=== PATIENT | female | born 1975 | race Caucasian/White ===

== ENCOUNTER 2021-06-15 13:25 | Outpatient (REF) | payer MEDICAID, SELFPAY ==
--- NOTE | ~2021-06-15 | MM_ITS ---
EXAMINATION: MM SCREENING DIGITAL BREAST TOMOSYNTHESIS, BILATERAL CLINICAL INFORMATION: Screening. Asymptomatic. The lifetime risk of breast cancer based on the Tyrer-Cuzick Model is 12%. COMPARISON: Mammography: 01/14/2020, 09/09/2018, 01/06/2018 TECHNIQUE: Digital breast tomosynthesis is performed in both the craniocaudal and mediolateral oblique views along with computer-aided detection (CAD). Synthesized 2D images are generated from the tomosynthesis. FINDINGS: The breasts are heterogeneously dense, which may obscure small masses (ACR BI-RADS breast composition Category c). Left breast shows no significant changes from prior exams. Neither breast shows abnormal calcifications. The axilla are stable. The skin contours are smooth. Right breast tomography demonstrates subtle focal radiating pattern 1.5 cm in diameter at posterior 12:30 o'clock position. Finding is not appreciated on synthesized 2-D images. Patient will be recalled for additional imaging to further characterize. MM/MM tomosynthesis screening BI IMPRESSION: 1. Right: Subtle focal converging lines posterior 12:30 o'clock position on the tomography. 2. Left: No mammographic evidence of malignancy. ASSESSMENT: BI-RADS 0: Incomplete - Need Additional Imaging Evaluation RECOMMENDATION: 1. Additional views of the right breast (spot CC, spot MLO, ML) 2. Targeted ultrasound right breast. 3. Radiology department staff will contact the patient for additional imaging. This patient's information was entered into a reminder system with a target due date for their next mammogram.
== END 2021-06-15 13:26 | disposition home or self-care (01) ==
LOC: HO.MAMMO 13:25
PROVIDERS: Visit Provider Internal Medicine
DX: Z12.31 Encounter for screening mammogram for malignant neoplasm of breast (principal)
CPT/HCPCS: 77063; 77067

== ENCOUNTER 2021-06-30 14:30 | Outpatient (REF) | payer MEDICAID, SELFPAY ==
--- NOTE | ~2021-06-30 | MM_ITS ---
EXAMINATION: MM DIAGNOSTIC DIGITAL BREAST TOMOSYNTHESIS, RIGHT US DIAGNOSTIC ULTRASOUND BREAST, RIGHT CLINICAL INFORMATION: Recall from screening for subtle focal converging lines posterior 12:30 o'clock position noted on tomography. TC score 12%. COMPARISON: Mammography: 06/15/2021, 01/14/2020, 09/09/2018 TECHNIQUE: Digital breast tomosynthesis is performed. 2D images are generated from the tomosynthesis. The following views are obtained: Spot CC, spot MLO, standard ML. Examination is reviewed intra-departmentally. Ultrasound right breast is targeted to the posterior upper breast. Grayscale imaging and color Doppler are performed without and with harmonics. Patient is imaged supine with normal as well as semiupright with arm down. FINDINGS: The breasts are heterogeneously dense, which may obscure small masses (ACR BI-RADS breast composition Category c). The additional views again demonstrate subtle focal radiating pattern of approximately 1.5 cm in diameter at posterior 12:30 o'clock position. In retrospect, finding is likely without significant change in size from prior tomography. Ultrasound shows no cystic or solid mass, focal duct ectasia, or focal architectural abnormality or shadowing. There is no ultrasound correlate. Results are discussed with the patient at time of visit. Although the finding is likely chronic and similar in size, the radiating pattern is of unclear etiology. Differential considerations include radial scar, fat necrosis, PASH, hamartoma, as well as other entities. Management options discussed with patient. Patient is willing to undergo tissue sampling with stereotactic guidance. MM/MM tomosynthesis added views R IMPRESSION: Subtle focal radiating stromal markings at posterior upper breast. No ultrasound correlate. Differential considerations include radial scar, fat necrosis, PASH, hamartoma, as well as other entities. ASSESSMENT: BI-RADS 4: Suspicious (subcategory 4A: Low suspicion for malignancy) RECOMMENDATION: Stereotactic biopsy right breast. This patient's information was entered into a reminder system with a target due date for their next mammogram.
== END 2021-06-30 14:31 | disposition home or self-care (01) ==
LOC: HO.MAMMO 14:30
PROVIDERS: Visit Provider Internal Medicine
DX: N63.12 Unspecified lump in the right breast, upper inner quadrant (principal)
CPT/HCPCS: 76642; 77061; 77065

== ENCOUNTER 2021-07-06 09:05 | Outpatient (REF) | payer MEDICAID, SELFPAY ==
--- NOTE | ~2021-07-06 | MM_ITS ---
EXAMINATION: STEREOTACTIC TOMOSYNTHESIS-GUIDED VACUUM-ASSISTED BREAST BIOPSY, RIGHT SPECIMEN RADIOGRAPH, RIGHT POST PROCEDURE DIGITAL BREAST TOMOSYNTHESIS, RIGHT CLINICAL INFORMATION: Subtle focal radiating pattern posterior 12:30 o'clock position right breast. No ultrasound correlate. Differential considerations include radial scar, fat necrosis, PASH, hamartoma, as well as other entities. COMPARISON: Mammography 06/15/2021, 06/30/2021, ultrasound right breast 06/30/2021. TECHNIQUE/PROCEDURE: Informed consent was obtained from the patient after discussion of the benefits, risks, and alternatives to biopsy today. Patient appeared to understand. Gave opportunity for questions. Patient signed consent form. BIOPSY TABLE: [employer] Affirm Prone Biopsy System. LESION: Subtle radiating pattern posterior 12:30 o'clock position approximately 1.5 cm in diameter. LOCAL ANESTHESIA: 10 mL carbonated 1% lidocaine; 10 mL 1% lidocaine with epinephrine. DERMATOTOMY: Single skin thomas dermatotomy performed. NEEDLE: [employer] Eviva 9-gauge vacuum assisted core biopsy device. APPROACH: medial lateral. TARGETING: Combination of digital breast tomosynthesis and stereotactic digital mammography used for targeting. CORES: 12. CLIP: [employer] Cylinder-shaped marker. SPECIMEN RADIOGRAPH: Specimen radiograph is taken in separate room using digital mammography. There are scattered fibroglandular densities in the cores as expected. POST PROCEDURE DIGITAL BREAST TOMOSYNTHESIS, RIGHT: The post biopsy mammogram is performed in separate room using separate digital breast tomosynthesis equipment from the biopsy procedure. CC and ML views are obtained. Synthesized 2-D images are obtained from the tomography. There are scattered areas of fibroglandular density (breast composition category: b). The clip marker is in expected position. The radiating density is not clearly visualized post sampling. No gross hematoma. The patient tolerated the procedure well. No immediate complications. Home instructions reviewed with the patient. Final pathology results are pending. MM/MM stereotactic biopsy RT IMPRESSION: 1. Digital tomosynthesis-guided core biopsy right breast with clip placement. 2. Specimen radiograph taken and post procedure mammogram. There is satisfactory positioning of the biopsy clip. 3. Final pathology results pending. An addendum report will be issued.
[2021-07-06] MEDS: Lidocaine HCl 1 % 20 ML VIAL 9 ML SUBCUT (11:19)
[2021-07-06] MEDS: Sodium Bicarbonate 8.4% 50 MEQ/50 ML VIAL SUBCUT (11:20)
== END 2021-07-06 09:06 | disposition home or self-care (01) ==
LOC: HO.MAMMO 09:05
PROVIDERS: Visit Provider Surgery
DX: R92.8 Other abnormal and inconclusive findings on diagnostic imaging of breast (principal)
CPT/HCPCS: 19081; 88305; 99202; A4648

== ENCOUNTER → 2021-07-12 13:46 | Outpatient (BNVA) | payer MEDICAID, SELFPAY | PROVIDERS: PCP Internal Medicine; Visit Provider Surgery | DX: R92.8 Other abnormal and inconclusive findings on diagnostic imaging of breast (principal); Z88.6 Allergy status to analgesic agent | CPT/HCPCS: 99212 ==

== ENCOUNTER 2022-06-21 13:13 | Outpatient (REF) | payer MEDICAID, SELFPAY ==
--- NOTE | ~2022-06-21 | MM_ITS ---
EXAMINATION: MM SCREENING DIGITAL BREAST TOMOSYNTHESIS, BILATERAL CLINICAL INFORMATION: Screening. Asymptomatic. Benign right stereotactic biopsy 07/06/2021 (benign breast tissue with stromal fibrosis, pseudoangiomatous stromal hyperplasia, and prominent adipose tissue. No atypia or malignancy identified). The lifetime risk of breast cancer based on the Tyrer-Cuzick Model is 12%. COMPARISON: Mammography: 07/06/2021, 06/30/2021, 06/15/2021, 01/14/2020, 09/09/2018 TECHNIQUE: Digital breast tomosynthesis is performed in both the craniocaudal and mediolateral oblique views along with computer-aided detection (CAD). Synthesized 2D images are generated from the tomosynthesis. FINDINGS: The breasts are heterogeneously dense, which may obscure small masses (ACR BI-RADS breast composition Category c). There is biopsy clip marker posterior 12:00 right breast. No developing density or interval mass or suspicious architectural changes. The remainder of the bilateral breasts show similar parenchymal pattern. No significant mass or abnormal calcifications. The axilla and skin contours are unremarkable. MM/MM tomosynthesis screening BI IMPRESSION: No mammographic evidence of malignancy. ASSESSMENT: BI-RADS 1: Negative RECOMMENDATION: Routine annual mammography screening. This patient's information was entered into a reminder system with a target due date for their next mammogram.
== END 2022-06-21 13:14 | disposition home or self-care (01) ==
LOC: HO.MAMMO 13:13
PROVIDERS: PCP Internal Medicine; Visit Provider Internal Medicine
DX: Z12.31 Encounter for screening mammogram for malignant neoplasm of breast (principal)
CPT/HCPCS: 77063; 77067

== ENCOUNTER 2023-01-21 | Outpatient (REF) | payer MEDICAID, SELFPAY | END 2023-01-21 00:01 | disposition home or self-care (01) | LOC: HO.HHCLNP | PROVIDERS: Visit Provider Family Medicine | DX: R30.0 Dysuria (principal) | CPT/HCPCS: 87086; 87088; 87186 ==

== ENCOUNTER 2023-02-22 16:17 | Outpatient (REF) | payer MEDICAID, SELFPAY ==
[2023-02-22 17:37] LABS: MANUAL DIFF FLAG NO
[2023-02-22 17:39] LABS: Basophils Percent Auto 0.5 % (0-2); Eosinophils Absolute Auto 0.4 X10*3/uL (0.0-0.4); Eosinophils Percent Auto 5.7 % (0-4); Hematocrit 38.6 % (37.0-47.0); Hemoglobin 12.4 g/dl (12.0-16.0); Imm Gran Abs Auto 0.03 X10*3/uL (0.00-0.03); Imm Gran Pct Auto 0.5 % (0.0-0.4); Lymphocytes Percent Auto 32.2 % (20-40); Mean Corpuscular HGB Conc 32.1 g/dl (31.0-35.0); Mean Corpuscular Hemoglobin 27.8 pg (27.0-33.0); Mean Corpuscular Volume 86.5 fL (80.0-98.0); Mean Platelet Volume 10.2 fL (9.4-12.3); Monocytes Absolute Auto 0.5 X10*3/uL (0.1-1.2); Monocytes Percent Auto 7.5 % (2-11); Neutrophils Absolute Auto 3.3 x10*3/uL (2.0-8.3); Neutrophils Percent Auto 53.6 % (45-73); Platelet Count 337 X10*3/uL (160-400); Red Blood Count 4.46 X10*6/uL (4.20-5.50); Red Cell Distribution Width 13.5 % (11.0-16.0); White Blood Count 6.1 X10*3/uL (4.8-10.8)
[2023-02-22 18:38] LABS: TSH reflex Free T4 4.02 uIU/mL (0.32-4.0)
[2023-02-22 19:10] LABS: Free T4 (Free Thyroxine) 0.85 ng/dL (0.71-1.85)
== END 2023-02-22 16:18 | disposition home or self-care (01) ==
LOC: HO.CHCLDS 16:17
PROVIDERS: Visit Provider Internal Medicine
DX: E03.9 Hypothyroidism, unspecified (principal); J01.10 Acute frontal sinusitis, unspecified
CPT/HCPCS: 36415; 84439; 84443; 85025

== ENCOUNTER 2023-03-28 10:39 | Outpatient (REF) | payer MEDICAID, SELFPAY ==
[2023-03-28 15:23] LABS: TSH reflex Free T4 4.51 uIU/mL (0.32-4.0)
== END 2023-03-28 10:40 | disposition home or self-care (01) ==
LOC: HO.CHCLDS 10:39
PROVIDERS: Visit Provider Internal Medicine
DX: E03.9 Hypothyroidism, unspecified (principal)
CPT/HCPCS: 36415; 84439; 84443; 87086

== ENCOUNTER 2023-03-28 16:13 | Outpatient (REF) | payer MEDICAID, SELFPAY | END 2023-03-28 16:14 | disposition home or self-care (01) | LOC: CF 16:13 | PROVIDERS: Visit Provider Internal Medicine | DX: R30.0 Dysuria (principal) | CPT/HCPCS: 87086 ==

== ENCOUNTER 2023-07-12 15:29 | Outpatient (REF) | payer MEDICAID, SELFPAY ==
--- NOTE | ~2023-07-12 | MM_ITS ---
EXAMINATION: MM SCREENING DIGITAL BREAST TOMOSYNTHESIS, BILATERAL CLINICAL INFORMATION: Screening. Asymptomatic. COMPARISON: Mammography: This study is compared with prior exams dating back to 2019. TECHNIQUE: Digital breast tomosynthesis is performed in both the craniocaudal and mediolateral oblique views along with computer-aided detection (CAD). Synthesized 2D images are generated from the tomosynthesis. FINDINGS: The breasts are heterogeneously dense, which may obscure small masses (ACR BI-RADS breast composition Category c). There are no significant masses, abnormal calcifications, or other abnormalities. There is a tissue marker present in the superior aspect of the right breast from prior benign percutaneous biopsy. MM/MM tomosynthesis screening BI IMPRESSION: No mammographic evidence of malignancy. ASSESSMENT: BI-RADS BI-RADS 2 - Benign Findings RECOMMENDATION: Routine annual mammography screening. 1 year F/U This examination should not preclude the clinical evaluation of a suspicious palpable abnormality. This patient's information was entered into a reminder system with a target due date for their next mammogram.
== END 2023-07-12 15:30 | disposition home or self-care (01) ==
LOC: HO.MAMMO 15:29
PROVIDERS: PCP Internal Medicine; Visit Provider Internal Medicine
DX: Z12.31 Encounter for screening mammogram for malignant neoplasm of breast (principal)
CPT/HCPCS: 77063; 77067

== ENCOUNTER → 2023-07-12 15:30 | Outpatient (BNV) | payer MEDICAID, SELFPAY | PROVIDERS: PCP Internal Medicine; Visit Provider Radiology Diagnostic Radiology | DX: Z12.31 Encounter for screening mammogram for malignant neoplasm of breast (principal) | CPT/HCPCS: 77063; 77067 ==

== ENCOUNTER 2024-09-02 11:01 | Outpatient (REF) | payer MEDICAID, SELFPAY ==
[2024-09-02 11:11] LABS: Appearance Urine Cloudy; Color Urine Yellow; Glucose Urine UA Negative (Negative); Leukocyte Esterase Urine Large (3+) (Negative); Nitrite Urine Negative (Negative); PH 6.5 (5.0-9.0); UMIC TRIGGER UACC YES; Urine Blood Trace (Negative); Urine Ketones Negative (Negative); Urine Protein Negative (Neg-Trace)
[2024-09-02 11:14] LABS: Bacteria Urine 4+ (None Seen); Hyaline Casts Urine 0-2 /LPF (0-2); RBC Urine 0-2 /HPF (0-2); Squamous Epithelial Cell Urine 0-2 /HPF (0-2); UACC Culture Trigger YES; WBC Urine >50 /HPF (0-5)
--- OUTSIDE RECORDS SUMMARY | 2024-09-02 12:26 | XMS_ITS | Encounter Summary ---
Author Organization [employer] Address [address] [place] [address] Care Team Providers Care Soil Technologist Name Role Phone Danielle Grant MD Primary Care Provider Encounter Details Date Type Department Care Team (Late st Contact Info) Description 10/25/2023 Orders Only [facility] PEDS [address] [place] [address] Danielle Grant MD [address] [place] [address] Mild intermittent asthma without complication (Primary Dx) Social History Tobacco Use Types Packs/Day Years Used Date Smoking Tobacco: Never Smokeless Tobacco: Never Comments Unknown Sex and Gender Information Value Date Recorded Sex Assigned at Female 02/26/2022 10:24 AM EDT Legal Sex Female 10:24 AM EDT Gender Identity Female 02/26/2022 10:24 AM EDT Sexual Orientation Choose not to disclose 2021 10:24 AM EDT documented as of this encounter Plan of Treatment Not on file documented as of this encounter Visit Diagnoses Diagnosis Mild intermittent asthma without complication- Primary documented in this encounter Care Teams Soil Technologist Relationship Specialty Start Date End Date Danielle Grant MD [address] [place] [address] PCP - General Internal Medicine 12/27/17 documented as of this encounter
--- OUTSIDE RECORDS SUMMARY | 2024-09-02 12:26 | XMS_ITS | Encounter Summary ---
Author Organization [employer] Address [address] [facility] [address] [place] [address] Care Team Providers Care Applications Analyst Name Role Phone Danielle Grant MD Primary Care Provider [phone]- [phone] Encounter Details Date Type Department Care Team (Late st Contact Info) Description 10/05/2022 Abstract [facility] MED [facility] PEDS [address] [place] [address] Danielle Grant MD [address] [place] [address] Social History Tobacco Use Types Packs/Day Years [...] documented as of this encounter Visit Diagnoses Not on filedocumented in this encounter Care Teams Applications Analyst Relationship Specialty Start Date End Date Danielle Grant MD [address] [place] [address] PCP - General Internal Medicine 12/27/17 documented as of this encounter
--- OUTSIDE RECORDS SUMMARY | 2024-09-02 12:26 | XMS_ITS | Encounter Summary ---
Author Organization [employer] Address [address] [facility] [address] [place] [address] Care Team Providers Care Used Car Renovator Name Role Phone Danielle Grant MD Primary Care Provider [phone]- [phone] Encounter Details Date Type Department Care Team (Late st Contact Info) Description 02/26/2023 Orders Only [facility] MED & PEDS [address] [place], [place] [phone] Danielle Grant MD [address] [place], [place] [phone] Acquired hypothyroidism (Primary Dx) Social History Tobacco Use Types [...] on file documented as of this encounter Procedures Procedure Name Priority Date/Time Associated Diagnosis Comments TSH W/REFLEX TO FT4 Routine 03/28/2023 10:41 AM EST Acquired hypothyroidism documented in this encounter Results * (ABNORMAL) TSH W/Reflex to FT4 (03/28/2023 10:41 AM EST) TSH reflex Free T4 4.51(H) 0.32 - 4.0 uIU/mL [facility] Blood 03/28/2023 10:4 1 AM EST 03/28/2023 2:17 PM EST Danielle Grant MD LAB BLOOD ORDERABLES Final Result [facility] [address] [place] [address] [phone] documented in this encounter Visit Diagnoses Diagnosis Acquired hypothyroidism- Primary Unspecified hypothyroidism documented in this encounter Care Teams Used Car Renovator Relationship Specialty Start Date End Date Danielle Grant MD [address] [place] [id number] PCP - General Internal Medicine 12/27/17 documented as of this encounter
--- OUTSIDE RECORDS SUMMARY | 2024-09-02 12:26 | XMS_ITS | Encounter Summary ---
Author Organization [employer] Address [address] [facility] [address] [place] [address] Care Team Providers Care [place] Helper Name Role Phone Danielle Grant MD Primary Care Provider [phone]- [phone] Encounter Details Date Type Department Care Team (Late st Contact Info) Description 10/05/2022 Abstract [facility] MED & PEDS [address] [place] [address] Danielle Grant MD [address] [place] [address] Social History Tobacco Use Types Packs/Day Years [...] on filedocumented in this encounter Care Teams [place] Helper Relationship Specialty Start Date End Date Danielle Grant MD [address] [place] [address] PCP - General Internal Medicine 12/27/17 documented as of this encounter
--- OUTSIDE RECORDS SUMMARY | 2024-09-02 12:26 | XMS_ITS | Clinical Summary ---
Author Organization [employer] Address [address] [facility] 7t [place] [address] Care Team Providers Care Telesales Professional Name Role Phone Danielle Grant MD Primary Care Provider [phone]- [phone] Allergies Active Allergy Reactions Criticality Noted Date Comments Codeine 06/17/2019 Other reaction(s): Abdominal pain, DIZZY Shellfish Allergy Anaphylaxis High 03/28/2018 Medications * This document contains information received from the source organization and may not represent a complete record from that organization. albuterol (2.5 MG/3ML) 0.083% nebulizer solution Inhale 3 mL every 8 (eight) hours. Active Ventolin HFA 108 (90 Base) MCG/ACT inhalerIndication s:Mild intermittent asthma without complication INHALE TWO PUFFS BY MOUTH EVERY 6 HOURS NEEDED FOR WHEEZING 18 g 024 Active naproxen (Naprosyn) 500 MG tabletIndications :Acute non-recurrent frontal sinusitis TAKE ONE TABLET TWICE DAILY 60 tablet Active loratadine (Claritin) 10 MG tabletIndications :Seasonal allergies TAKE ONE TABLET EVERY MORNING 30 tablet Active fluticasone (Flonase) 50 MCG/ACT nasal spray INHALE 1 - 2 SPRAYS IN EACH NOSTRIL ONCE DAILY NEEDED 16 g Active Mometasone Furoate (Asmanex, 120 Metered Doses,) 220 MCG/ACT aerosol powderIndications :Mild intermittent asthma without complication Inhale 220 mcg 2 times daily. 1 each Active levothyroxine (Synthroid, Levoxyl) 100 MCG tabletIndications :Acquired hypothyroidism TAKE ONE TABLET EVERY MORNING BEFORE BREAKFAST 90 tablet 1 024 Active Beclomethasone Diprop HFA (Qvar RediHaler) 80 MCG/ACT inhalerIndication s:Mild intermittent asthma, unspecified whether complicated Inhale 80 mcg in the morning and at bedtime. Rinse mouth with water after use to reduce aftertaste and incidence of candidiasis. Do not swallow. 10.6 g 11 025 Active chlorhexidine (Peridex) 0.12 % solution Swish 15 mL morning and night for 1 minute. Spit, do not swallow. Do not eat or drink for 30 minutes following use. 473 mL 025 Active ibuprofen 600 MG tablet Take 1 tablet (600 mg) by mouth every 6 (six) hours if needed for mild pain for up to 20 doses. 20 tablet 025 Active ciprofloxacin (Cipro) 500 MG tabletIndications :Dysuria,Costover tebral angle tenderness Take 1 tablet (500 mg) by mouth 2 times daily for 7 days. 14 tablet 025 2024 Active levothyroxine (Synthroid, Levoxyl) 112 MCG tabletIndications :Acquired hypothyroidism Take 1 tablet (112 mcg) by mouth Once per day. 90 tablet 3 025 Active ibuprofen 600 MG tabletIndications :Acute sore throat,Pharyngiti s due to other organism Take 1 tablet (600 mg) by mouth every 8 (eight) hours if needed for mild pain. 20 tablet 025 Active levothyroxine (Synthroid, Levoxyl) 112 MCG tabletIndications :Acquired hypothyroidism TAKE ONE TABLET DAILY 90 tablet 1 024 2024 Discontinued(R eorder (will not trigger notification to Pharmacy)) ibuprofen 600 MG tabletIndications :Acute sore throat,Pharyngiti s due to other organism TAKE ONE TABLET TWICE DAILY 20 tablet 024 2024 Discontinued(R eorder (will not trigger notification to Pharmacy)) Active Problems Problem Noted Date Diagnosed Date Costovertebral angle tenderness 09/01/2024 Assessment & Plan (09/01/2024 6:10 PM EDT): On exam had left CVA tenderness. Suspect possible early pyelonephritis given exam, history and urine dip significant for acute UTI. -prescribed ciprofloxacin (Cipro) 500 MG Dysuria 09/01/2024 Assessment & Plan (09/01/2024 6:09 PM EDT): Likely acute UTI based on history, exam and urine dip. Left CVA tenderness, suspicious for stefano pyelonephritis. Denies antibiotic use in the past 90 days. Allergies reviewed. -Urinalysis and urine culture sent to the lab -Started on ciprofloxacin (Cipro) 500 MG for suspected early pyelonephritis. -Potential adverse effects of the medication reviewed -Discussed strategies to prevent future infections: Increase fluids. Urinate after sex. Avoid bladder irritants. -Report fever, chills, worsening symptoms, nausea, vomiting or worsening back pain. Acne 07/15/2024 Migraine 07/15/2024 Cervical intraepithelial neoplasia grade 1 05/11 Chronic neck pain 05/11/2022 Hypothyroidism 05/11/2022 Mild intermittent asthma 05/11/2022 Positional vertigo 05/11/2022 Asthma 02/26/2017 History of cervical dysplasia 02/26/2017 Overview (07/15/2024): 01/2016: LGSIL -> colpo CIN1 02/2017: LEEP BETO 1-2, neg ECC, neg margins 2018: NIL/HPV neg 2019: NIL/HPV pos 05/2020: NIL/HPV neg Plan: repeat pap in 3 year Encounters Date Type Department Care Team Description 09/01/2024 6:00 PM EDT Office Visit [facility] [address] [place] [phone] Angely Reed MD Dysuria (Primary Dx); Costovertebral angle tenderness; Acquired hypothyroidism; Acute sore throat; Pharyngitis due to other organism 09/01/2024 Telephone [facility] [address] [place] [address] [phone] Angely Reed MD insurance 09/01/2024 Travel 09/01/2024 Telephone [facility] [address] [place] [address] [phone] aDnielle Grant MD Nurse Triage 07/15/2024 11:00 AM EDT Office Visit [facility] [address] [place] [address] Radha Reed DMD History of tooth extraction, unspecified edentulism class (Primary Dx) 07/15/2024 9:00 AM EDT Office Visit [facility] [address] [place] [address] Martell, Harmanpreet 07/14/2024 2:30 PM EDT Office Visit [facility] [address] [place] [address] Martell, Harmanpreet 07/14/2024 Telephone [facility] [address] [place] [address] Martell, Harmanpreet 06/30/2024 3:30 PM EST Office Visit [facility] [address] [place] [address] Martell, Harmanpreet from Last 3 Months Immunizations Name Administration Dates Next Due Influenza injectable quadrivalent preservative f ree 03/28/2023 Social History Tobacco Use Types Packs/Day Years Used Date Smoking Tobacco: Never Smokeless Tobacco: Never Tobacco Cessation:Counseling Given: No Comments Unknown Sex and Gender Information Value Date Recorded Sex Assigned at Female 02/26/2022 10:24 AM EDT Legal Sex Female 10:24 AM EDT Gender Identity Female 02/26/2022 10:24 AM EDT Sexual Orientation Choose not to disclose 2021 10:24 AM EDT Last Filed Vital Signs Vital Sign Reading Time Taken Comments Blood Pressure 122/78 09/01/2024 5:45 PM EDT Pulse 76 09/01/2024 5:45 PM EDT Temperature 36.2 ??C (97.1 ??F) 09/01/2024 5:45 PM ED T Respiratory Rate 22 09/01/2024 5:45 PM EDT Oxygen Saturation 97% 09/01/2024 5:45 PM EDT Inhaled Oxygen Concentration - - Weight 78.2 kg (172 lb 8 oz) 09/01/2024 5:45 PM EDT Height 160 cm (5' 3 ) 09/01/2024 5:45 PM EDT Body Mass Index 30.56 09/01/2024 5:45 PM EDT Plan of Treatment Health Maintenance Due Date Last Done Comments CT Colonography 1975 Depression Screening 1975 FIT DNA/Cologuard 1975 FIT 1975 FOBT 1975 HIV Screening 1975 SDOH Screening 1975 Sigmoidoscopy 1975 Alcohol/Substance Use Screening 1987 Family Planning (PISQ) 07/12/1990 Hepatitis C Screening 07/12/1993 Hepatitis B Vaccines (1 of 3 - 19+ 3-dose series) 07/12/1994 Pneumococcal Vaccine: Pediatrics (0 to 5 Years) and At-Risk Patients (6 to 49) Years) (1 of 2 - PCV) 07/12/1994 Dental Oral Exam 12/17/2019 06/17/2019, 06/2018, 07/30/2018 Dental Prophylaxis 12/17/2019 06/17/2019 Dental X-Ray: Full Mouth 03/04/2022 03/03/2019, 04/06/2018 Pap Smear 05/30/2023 05/30/2020 COVID-19 Vaccine ( season) 2023 04/20/2021, 08/21/2020, 07/30/2020 Influenza Vaccine (#1) 2023 , 03/27/2022, 03/07/2021, Additional history exists Mammogram 07/11/2024 07/12/2023, 05/31, 06/21/2022, Additional history exists Cervical Cancer Screening 05/30/2025 HPV/Cotest 05/30/2025 05/30/2020 Dental X-Ray: Bitewings 07/01/2025 06/30/2024, 07/30 Zoster Vaccines (1 of 2) 07/12/2025 Tobacco Screening 07/15/2025 07/15/2024 DTaP/Tdap/Td Vaccines (3 - Td or Tdap) 04/18/2027 04/18/2017, 11/01/2011, 07/01/2006 Colonoscopy 04/02/2032 04/02/2022 Colorectal Cancer Screening 04/02/2032 RSV Patients and Patients Aged 60 years or older (1 - 1-dose 75+ series) 07/12/2050 HIB Vaccines Aged Out No longer eligi ble based on patient's age to complete this topic HPV Vaccines Aged Out No longer eligi ble based on patient's age to complete this topic Hepatitis A Vaccines Aged Out No long er eligible based on patient's age to complete this topic IPV Vaccines Aged Out No longer eligi ble based on patient's age to complete this topic Meningococcal Vaccine Aged Out No jessica ankita eligible based on patient's age to complete this topic RSV under 20 months Aged Out No longe r eligible based on patient's age to complete this topic Rotavirus Vaccines Aged Out No longer eligible based on patient's age to complete this topic Procedures Procedure Name Priority Date/Time Associated Diagnosis Comments URINALYSIS, COMPLETE, WITH REFLEX TO CULTURE Routine 09/01/2024 6:00 PM EDT Dysuria POCT URINALYSIS DIPSTICK Routine 09/01/2024 5:58 PM EDT Dysuria 31 EXTRACTION, ERUPTED TOOTH REQ REMOVAL OF BONE AND/OR SECTIONING OF TOOTH Routine 07/15/2024 11:00 AM EDT History of tooth extraction, unspecified edentulism class CASE PRESENTATION, DETAILED AND EXTENSIVE TREATMENT PLANNING Routine 07/15/2024 11:00 AM EDT History of tooth extraction, unspecified edentulism class NO CHARGE VISIT Routine 07/15/2024 9:00 AM EDT NO CHARGE VISIT Routine 07/14/2024 2:30 PM EDT BITEWING - SINGLE RADIOGRAPHIC IMAGE Routine 06/30/2024 3:30 PM EST INTRAORAL - PERIAPICAL FIRST RADIOGRAPHIC IMAGE Routine 06/30/2024 3:30 PM EST LIMITED ORAL EVALUATION - PROBLEM FOCUSED Routine 06/30/2024 3:30 PM EST BI MAMMOGRAM SCREENING TOMOSYNTHESIS BILATERAL Routine 07/12/2023 3:47 PM EDT HM PAP/HPV Routine 05/30/2020 PROPHYLAXIS - ADULT Routine 06/17/2019 1 2:00 AM EST PERIODIC ORAL EVALUATION - ESTABLISHED PATIENT Routine 06/17/2019 12:00 AM EST PANORAMIC RADIOGRAPHIC IMAGE Routine 03/03/2019 12:00 AM EST from Last 3 Months or Most Recently Relevant to Health Maintenance Results * (ABNORMAL) Urinalysis, Complete, with Reflex to Culture (09/01/2024 6:00 PM EDT) Color Urine Yellow [facility] Appearance Urine Cloudy [facility] PH 6.5 5.0 - 9.0 [facility] Glucose Urine UA Negative Negative mg/dL [facility] Urine Blood Trace(A) Negative [facility] Specific [place] - Urine 1.010 1.005 - 1.025 [facility] Urine Protein Negative Neg-Trace mg/dL [facility] Urine Ketones Negative Negative mg/dL [facility] Nitrite Urine Negative Negative [facility] Leukocyte Esterase Urine Large (3+)(A) Negative [facility] RBC Urine 0-2 0 - 2 /HPF [facility] Urine WBC >50(A) 0 - 5 /HPF [facility] Urine Squamous Epithelial Cell 0-2 0 - 2 /HPF [facility] Urine Bacteria 4+ None Seen [facility] Hyaline Casts, Urine 0-2 0 - 2 /LPF [facility] Urine 09/01/2024 6:00 PM EDT 09/02/2024 11:02 AM EDT Narrative [facility] - 09/02/2024 11:16 AM EDT Urine, Clean Catch us Angely Reed MD LAB URINE ORDERABLES Final Result [facility] [address] [place] [phone] * (ABNORMAL) POCT Urinalysis (09/01/2024 5:58 PM EDT) Color, UA Light Yellow Clarity, UA Clear Glucose, UA Negative Bilirubin, UA Negative Ketones, UA Negative Spec Grav, UA 1.010 Blood, UA Positive(A) Negative, None Detected Comment:Trace-intact pH, UA 6.5 Protein, UA Negative Urobilinogen, UA 1.0 Leukocytes, UA Moderate(A) Negative, Rare, Trace Nitrite, UA Negative Negative, None Detected Appearance, UA [id number] QC Media Lot # [id number] Urine 09/01/2024 5:58 PM EDT us Angely Reed MD POINT OF CARE TEST ENTER/E DIT ORDERABLES Final Result * BI Mammogram Screening Tomosynthesis Bilateral (07/12/2023 3:47 PM EDT) Anatomical Region Laterality Modality Breast Bilateral Mammography 07/12/2023 3:47 PM EDT Narrative 08/03/2023 2:52 PM EDT ? [facility] ? [address] ?[place] [address] ? Mammography Report ? Signed ? Patient: Cheverez,Lumary ?MR#: [id number] ?? [id number] ? : 1975 ?Acct:[id number] ? Age/Sex: 47 / F ?ADM Date: 07/12/23 ? Loc: HO.MAMMO ? Attending Dr: Danielle Grant MD ? Ordering Physician: Danielle Grant MD ?Results: 2 ?? Benign Findings ? Date of Service: 07/12/23 ?Follow Up: 1 Year From Orig ?? inal Mammogram ? Procedure(s): MM tomosynthesis screening BI ?? Accession Number(s): [id number] ? cc: Danielle Grant MD ? EXAMINATION: ?? MM SCREENING DIGITAL BREAST TOMOSYNTHESIS, BILATERAL ? CLINICAL INFORMATION: ? Screening. Asymptomatic. ? COMPARISON: ?? Mammography: This study is compared with prior exams dating back to ?? 2018. ? TECHNIQUE: ?? Digital breast tomosynthesis is performed in both the craniocaudal and ?? mediolateral oblique views along with computer-aided detection (CAD). ?? Synthesized 2D images are generated from the tomosynthesis. ? FINDINGS: ?? The breasts are heterogeneously dense, which may obscure small masses ?? (ACR BI-RADS breast composition Category c). ? There are no significant masses, abnormal calcifications, or other ?? abnormalities. ? There is a tissue marker present in the superior aspect of the right ?? breast from prior benign percutaneous biopsy. ? MM/MM tomosynthesis screening BI ?? IMPRESSION: ?? No mammographic evidence of malignancy. ? ASSESSMENT: ? BI-RADS BI-RADS 2 - Benign Findings ? RECOMMENDATION: ?? Routine annual mammography screening. ? 1 year F/U ? This examination should not preclude the clinical evaluation of a ?? suspicious palpable abnormality. ? This patient's information was entered into a reminder system with a ?? target due date for their next mammogram. ? Dictated By: ?Rebekah Verdugo MD ? Signed By: ?<Electronically signed by Rebekah Verdugo MD in OV> ? 08/03/23 1449 ? DD/ 1547 ? TD/TT: ? Nursing Project Coordinator: ? Procedure Note Ilda, Image - 08/03/2023 [facility] [address] [place] [address] [place]. [place], [place] [address] Mammography Report Signed Patient: Kelley TaborMR#: [id number] : 1975Acct:[id number] Age/Sex: 47 / FADM Date: 07/12/23 Loc: [facility] Attending Dr: Danielle Grant MD Ordering Physician: Danielle Grant MDResults: 2 Benign Findings Date of Service: 07/12/23Follow Up: 1 Year From Orig ina Mammogram Procedure(s): MM tomosynthesis screening BI Accession Number(s): [id number] cc: Danielle Grant MD EXAMINATION: MM SCREENING DIGITAL BREAST TOMOSYNTHESIS, BILATERAL CLINICAL INFORMATION: Screening. Asymptomatic. COMPARISON: Mammography: This study is compared with prior exams dating back to 2019. TECHNIQUE: Digital breast tomosynthesis is performed in both the craniocaudal and mediolateral oblique views along with computer-aided detection (CAD). Synthesized 2D images are generated from the tomosynthesis. FINDINGS: The breasts are heterogeneously dense, which may obscure small masses (ACR BI-RADS breast composition Category c). There are no significant masses, abnormal calcifications, or other abnormalities. There is a tissue marker present in the superior aspect of the right breast from prior benign percutaneous biopsy. MM/MM tomosynthesis screening BI IMPRESSION: No mammographic evidence of malignancy. ASSESSMENT: BI-RADS BI-RADS 2 - Benign Findings RECOMMENDATION: Routine annual mammography screening. 1 year F/U This examination should not preclude the clinical evaluation of a suspicious palpable abnormality. This patient's information was entered into a reminder system with a target due date for their next mammogram. Dictated By: Rebekah Verdugo MD Signed By: <Electronically signed by Rebekah Verdugo MD in OV> 08/03/23 1449 DD/ 1547 TD/TT: Nursing Project Coordinator: Danielle Grant MD IMG BI PROCEDURES Final Res ult * Hm Pap Smear (05/30/2020) Pap Negative for intraephithelial lesion or malignancy Negative for intraephithelial lesion or malignancy, Other HPV Undetected Undetected, Indeterminate, Quantitative, Not Detected Historical Provider HEALTH MAINTENANCE Final Result from Last 3 Months or Most Recently Relevant to Health Maintenance Insurance N PARTIAL [facility] Care Teams Telesales Professional Relationship Specialty Start Date End Date Danielle Grant MD [address] [place] [id number] PCP - General Internal Medicine 12/27/17
--- OUTSIDE RECORDS SUMMARY | 2024-09-02 12:26 | XMS_ITS | Encounter Summary ---
Author Organization [employer] Address [address] [facility] 7 [place] [address] Care Team Providers Care Tire And Tube Repairer Name Role Phone Danielle Grant MD Primary Care Provider [phone]- [phone] Encounter Details Date Type Department Care Team (Late st Contact Info) Description 10/05/2022 Abstract [facility] [address] [place], [place] [phone] Danielle Grant MD [address] [place], [place] [phone] Social History Tobacco Use Types Packs/Day Years [...] Procedure Name Priority Date/Time Associated Diagnosis Comments MAMMOGRAPHY Routine 06/21/2022 documented in this encounter Results * Mammography (06/21/2022) Mammogram performed Comment:PERFORMED Anatomical Region Laterality Modality Other Historical Provider HEALTH MAINTENANCE Final Result documented in this encounter Visit Diagnoses Not on filedocumented in this encounter Care Teams Tire And Tube Repairer Relationship Specialty Start Date End Date Danielle Grant MD [address] [place] [address] PCP - General Internal Medicine 12/27/17 documented as of this encounter
--- OUTSIDE RECORDS SUMMARY | 2024-09-02 12:26 | XMS_ITS | Encounter Summary ---
Author Organization [employer] Address [address] [facility] 7t [place] [address] Care Team Providers Care Sprinkler Truck Driver Name Role Phone Danielle Grant MD Primary Care Provider [phone]- [phone] Encounter Details Date Type Department Care Team ([facility] st Contact Info) Description 05/11/2022 Orders Only [facility] [address] [place] [address] Kristina Browning LPN Social History Tobacco Use Types Packs/Day Years Used Date Smoking Tobacco: Never Assessed Comments Unknown Sex and Gender Information Value [...] on filedocumented in this encounter Care Teams Sprinkler Truck Driver Relationship Specialty Start Date End Date Danielle Grant MD [address] [place] [address] PCP - General Internal Medicine 12/27/17 documented as of this encounter
--- OUTSIDE RECORDS SUMMARY | 2024-09-02 12:26 | XMS_ITS | Encounter Summary ---
Author Organization [employer] Address [address] [facility] [address] [place] [address] Care Team Providers Care Suppository Molding Machine Operator Name Role Phone Danielle Grant MD Primary Care Provider [phone]- [phone] Encounter Details Date Type Department Care Team (Late st Contact Info) Description 10/05/2022 Abstract [facility] [address] [place] [address] Danielle Grant MD [address] [place] [address] Social History Tobacco Use Types Packs/Day Years [...] on filedocumented in this encounter Care Teams Suppository Molding Machine Operator Relationship Specialty Start Date End Date Danielle Grant MD [address] [place] [address] PCP - General Internal Medicine 12/27/17 documented as of this encounter
--- OUTSIDE RECORDS SUMMARY | 2024-09-02 12:26 | XMS_ITS | Encounter Summary ---
Author Organization [employer] Address [address] [facility] [address] [place] [address] Care Team Providers Care Head Of Drama Name Role Phone Danielle Grant MD Primary Care Provider +1- [phone] Reason for Visit * Reason Onset Date Comments insurance 09/01/2024 Encounter Details Date Type Department Care Team ([facility] st Contact Info) Description 09/01/2024 Telephone [facility] [address] [place] [address] [phone] Angely Reed MD [address] [place], [place] [phone] insurance Social History Tobacco Use Types Packs/Day Years Used Date Smoking Tobacco: Never Smokeless Tobacco: Never Comments Unknown Sex and Gender Information Value Date Recorded Sex Assigned at Female 02/26/2022 10:24 AM EDT Legal Sex Female 10:24 AM EDT Gender Identity Female 02/26/2022 10:24 AM EDT Sexual Orientation Choose not to disclose 2021 10:24 AM EDT documented as of this encounter Miscellaneous Notes * Telephone Encounter - Shalini Kearns - 09/01/2024 5:35 PM EDT Pt was advised to update insurance with PCP/LOC info. Pt agreed mentioned she would take care of matter tomorrow 09/02/24 during regular business hours. FD informed pt to also advise insurance that she was seen today on 09/01/24 in our walk in office. documented in this encounter Plan of Treatment Not on file documented as of this encounter Visit Diagnoses Not on filedocumented in this encounter Care Teams Head Of Drama Relationship Specialty Start Date End Date Danielle Grant MD [address] [place] [phone] PCP - General Internal Medicine 12/27/17 documented as of this encounter
--- OUTSIDE RECORDS SUMMARY | 2024-09-02 12:26 | XMS_ITS | Encounter Summary ---
Author Organization [employer] Address [address] [facility] 7t [place] [address] Care Team Providers Care Casino Floor Person Name Role Phone Danielle Grant MD Primary Care Provider +1- [phone] Encounter Details Date Type Department Care Team (Late st Contact Info) Description 10/05/2022 Abstract [facility] [address] [place] [address] Danielle Grant MD [address] [place] [address] Social History Tobacco Use Types Packs/Day Years [...] on filedocumented in this encounter Care Teams Casino Floor Person Relationship Specialty Start Date End Date Danielle Grant MD [address] [place] [address] PCP - General Internal Medicine 12/27/17 documented as of this encounter
--- OUTSIDE RECORDS SUMMARY | 2024-09-02 12:26 | XMS_ITS | Encounter Summary ---
Author Organization [employer] Address [address] [facility] 7t [place] [address] Care Team Providers Care Wireline Operator Name Role Phone Danielle Grant MD Primary Care Provider [phone]- [phone] Encounter Details Date Type Department Care Team (Late st Contact Info) Description 09/01/2024 6:00 PM EDT Office Visit [facility] [address] [place] [address] [phone] Angely Reed MD [address] [place] [phone] Dysuria (Primary Dx); Costovertebral angle tenderness; Acquired hypothyroidism; Acute sore throat; Pharyngitis due to other organism Social History Tobacco Use Types Packs/Day Years Used Date Smoking Tobacco: Never Smokeless Tobacco: Never Comments Unknown Sex and Gender Information Value Date Recorded Sex Assigned at Female 02/26/2022 10:24 AM EDT Legal Sex Female 10:24 AM EDT Gender Identity Female 02/26/2022 10:24 AM EDT Sexual Orientation Choose not to disclose 2021 10:24 AM EDT documented as of this encounter Last Filed Vital Signs Vital Sign Reading [...] Mass Index 30.56 09/01/2024 5:45 PM EDT documented in this encounter Progress Notes * Angely Reed MD - 09/01/2024 6:00 PM EDT Sabra Tabor is a 49 y.o. female here for evaluation of dysuria and specifically at end of urination beginning 5 days ago. Other associated symptoms include: back pain and urinary frequency. Feverhas been absent. Symptoms which are not present include: vaginal discharge and vaginal itching. UTIhistory: UA recent with findings of UTI with unknown organism earlier today showed negative nitrites, moderate leukocytes. Antibiotic use within past three months: SJBABXUSE: none. Review of Systems Constitutional: Negative for fever and unexpected weight change. Respiratory: Negative for shortness of breath. Cardiovascular: Negative for chest pain. Gastrointestinal: Negative for abdominal pain. Genitourinary: Positive for decreased urine volume and dysuria. Negative for difficulty urinating, menstrual problem, pelvic pain, vaginal bleeding, vaginal discharge and vaginal pain. Musculoskeletal: Positive for back pain. Objective Visit Vitals BP 122/78 (BP Location: Right arm, Patient Position: Sitting, BP Cuff Size: Adult) Pulse 76 Temp 97.1 ??F (36.2 ??C) (Temporal) Resp 22 Ht 5' 3 (1.6 m) Wt 172 lb 8 oz (78.2 kg) LMP 07/30/2024 (Within Days) SpO2 97% BMI 30.56 kg/m?? Smoking Status Never BSA 1.86 m?? Physical Exam Constitutional: Appearance: Normal appearance. Cardiovascular: Rate and Rhythm: Normal rate and regular rhythm. Heart sounds: Normal heart sounds. Pulmonary: Effort: Pulmonary effort is normal. Breath sounds: Normal breath sounds. Abdominal: Tenderness: There is no abdominal tenderness. There is right CVA tenderness and left CVA tenderness. Musculoskeletal: Cervical back: Normal range of motion and neck supple. Neurological: General: No focal deficit present. Mental Status: She is alert. Psychiatric: Behavior: Behavior normal. Lab review Office Visit on 09/01/2024 Component Date Value Ref Range Status Color, UA 09/01/2024 Light Yellow Final Clarity, UA 09/01/2024 Clear Final Glucose, UA 09/01/2024 Negative Final Bilirubin, UA 09/01/2024 Negative Final Ketones, UA 09/01/2024 Negative Final Spec Grav, UA 09/01/2024 1.010 Final Blood, UA 09/01/2024 Positive (A) Negative, None Detected Final Trace-intact pH, UA 09/01/2024 6.5 Final Protein, UA 09/01/2024 Negative Final Urobilinogen, UA 09/01/2024 1.0 Final Leukocytes, UA 09/01/2024 Moderate (A) Negative, Rare, Trace Final Nitrite, UA 09/01/2024 Negative Negative, None Detected Final Appearance, UA 09/01/2024 408,020 Final QC Media Lot # 09/01/2024 [id number] Final Problem List Items Addressed This Visit Dysuria - Primary Likely acute UTI based on history, exam [...] symptoms, nausea, vomiting or worsening back pain. Relevant Medications ciprofloxacin (Cipro) 500 MG tablet Other Relevant Orders POCT Urinalysis (Completed) Urinalysis, Complete, with Reflex to Culture Costovertebral angle tenderness On exam had left CVA tenderness. Suspect possible early pyelonephritis given exam, history and urine dip significant for acute UTI. -prescribed ciprofloxacin (Cipro) 500 MG Relevant Medications ciprofloxacin (Cipro) 500 MG tablet Hypothyroidism Relevant Medications levothyroxine (Synthroid, Levoxyl) 112 MCG tablet Other Visit Diagnoses Acute sore throat Relevant Medications ibuprofen 600 MG tablet Pharyngitis due to other organism Relevant Medications ibuprofen 600 MG tablet -No evidence of acute disease process. Suspect acute UTI, possible early pyelonephritis. Symptoms moderate. -Will treat with abx and ordered UA and sent culture. . -ER precautions discussed. -Seek medical attention for worsening symptoms. IAmrit, am serving as a scribe to document services personally performed by Dr. Santizo, based on the patient's response to questions by provider and providers statements to me. documented in this encounter Miscellaneous Notes * Assessment & Plan Note - Amrit Parmar - 09/01/2024 6:10 PM EDTAssociated Problem(s): Costovertebral angle tenderness On exam had left CVA tenderness. Suspect possible early pyelonephritis given exam, history and urine dip significant for acute UTI. -prescribed ciprofloxacin (Cipro) 500 MG * Assessment & Plan Note - Amrit Parmar - 09/01/2024 6:09 PM EDTAssociated Problem(s): Dysuria Likely acute UTI based on history, exam [...] symptoms, nausea, vomiting or worsening back pain. documented in this encounter Plan of Treatment Not on file documented as of this encounter Procedures Procedure Name Priority Date/Time Associated Diagnosis Comments URINALYSIS, COMPLETE, WITH REFLEX TO CULTURE Routine 09/01/2024 6:00 PM EDT Dysuria POCT URINALYSIS DIPSTICK Routine 09/01/2024 5:58 PM EDT Dysuria documented in this encounter Results * (ABNORMAL) Urinalysis, Complete, with Reflex to Culture (09/01/2024 6:00 PM EDT) Color Urine Yellow [facility] Appearance Urine Cloudy [facility] PH 6.5 5.0 - 9.0 [facility] Glucose Urine UA Negative Negative mg/dL [facility] Urine Blood Trace(A) Negative [facility] Specific [place] - Urine 1.010 1.005 - 1.025 [facility] Urine Protein Negative Neg-Trace mg/dL [facility] Urine Ketones Negative Negative mg/dL [facility] Nitrite Urine Negative Negative [facility] Leukocyte Esterase Urine Large (3+)(A) Negative [facility] RBC Urine 0-2 0 - 2 /HPF [facility] Urine WBC >50(A) 0 - 5 /HPF [facility] Urine Squamous Epithelial Cell 0-2 0 - 2 /HPF [facility] Urine Bacteria 4+ None Seen [facility] Hyaline Casts, Urine 0-2 0 - 2 /LPF [facility] Urine 09/01/2024 6:00 PM EDT 09/02/2024 11:02 AM EDT Narrative [facility] - 09/02/2024 11:16 AM EDT Urine, Clean Catch Angely Reed MD LAB URINE ORDERABLES Final Result [facility] [address] [place] [phone] * (ABNORMAL) POCT Urinalysis (09/01/2024 5:58 [...] Appearance, UA 408,020 QC Media Lot # [id number] Urine 09/01/2024 5:58 PM EDT Angely Reed MD POINT OF CARE TEST ENTER/E DIT ORDERABLES Final Result documented in this encounter Visit Diagnoses Diagnosis Dysuria- Primary Costovertebral angle tenderness Acquired hypothyroidism Unspecified hypothyroidism Acute sore throat Pharyngitis due to other organism documented in this encounter Care Teams Wireline Operator Relationship Specialty Start Date End Date Danielle Grant MD [address] [place] [phone] PCP - General Internal Medicine 12/27/17 documented as of this encounter
--- OUTSIDE RECORDS SUMMARY | 2024-09-02 12:26 | XMS_ITS | Encounter Summary ---
Author Organization [employer] Address [address] [facility] 7t [place] [address] Care Team Providers Care Peer Specialist Name Role Phone Danielle Grant MD Primary Care Provider Encounter Details Date Type Department Care Team (Late st Contact Info) Description 05/05/2024 Orders Only [facility] [address] [place] [address] Danielle Grant MD [address] [place] [address] Mild intermittent asthma, unspecified whether complicated (Primary Dx) Social History Tobacco Use Types [...] this encounter Visit Diagnoses Diagnosis Mild intermittent asthma, unspecified whether complicated- Primary documented in this encounter Care Teams Peer Specialist Relationship Specialty Start Date End Date Danielle Grant MD [address] [place] [address] PCP - General Internal Medicine 12/27/17 documented as of this encounter
--- OUTSIDE RECORDS SUMMARY | 2024-09-02 12:26 | XMS_ITS | Encounter Summary ---
Author Organization [employer] Address [address] [facility] 7t [place] [address] Care Team Providers Care Dope Weigh Operator Name Role Phone Danielle Grant MD Primary Care Provider [phone]- [phone] Encounter Details Date Type Department Care Team (Late st Contact Info) Description 10/05/2022 Abstract [facility] MED & PEDS [address] [place] [address] Danielle Grant MD [address] [place] [address] Social History Tobacco Use Types Packs/Day Years [...] on filedocumented in this encounter Care Teams Dope Weigh Operator Relationship Specialty Start Date End Date Danielle Grant MD [address] [place] [address] PCP - General Internal Medicine 12/27/17 documented as of this encounter
--- OUTSIDE RECORDS SUMMARY | 2024-09-02 12:26 | XMS_ITS | Encounter Summary ---
Author Organization [employer] Address [address] [facility] 7t [place] [address] Care Team Providers Care Teacher Learning Disabled Name Role Phone Danielle Grant MD Primary Care Provider [phone]- [phone] Encounter Details Date Type Department Care Team (Latest Contact Info) Description 09/01/2024 Travel Social History Tobacco Use Types Packs/Day Years [...] on filedocumented in this encounter Care Teams Teacher Learning Disabled Relationship Specialty Start Date End Date Danielle Grant MD [address] [place] [address] PCP - General Internal Medicine 12/27/17 documented as of this encounter
--- OUTSIDE RECORDS SUMMARY | 2024-09-02 12:26 | XMS_ITS | Encounter Summary ---
Author Organization [employer] Address [address] [facility] 7t [place] [address] Care Team Providers Care Experimental Electronics Developer Name Role Phone Danielle Grant MD Primary Care Provider [phone]- [phone] Encounter Details Date Type Department Care Team (Late st Contact Info) Description 10/05/2022 Abstract [facility] MED & PEDS [address] [place] [address] Danielle Grant MD [address] [place] [address] Social History Tobacco Use Types Packs/Day Years [...] on filedocumented in this encounter Care Teams Experimental Electronics Developer Relationship Specialty Start Date End Date Danielle Grant MD [address] [place] [address] PCP - General Internal Medicine 12/27/17 documented as of this encounter
--- OUTSIDE RECORDS SUMMARY | 2024-09-02 12:26 | XMS_ITS | Encounter Summary ---
Author Organization [employer] Address [address] [facility] 7t [place] [address] Care Team Providers Care Sand Cutter Name Role Phone Danielle Grant MD Primary Care Provider +1- [phone] Encounter Details Date Type Department Care Team (Latest Contact Info) Description 07/30/2018 Abstract [facility] CONVERSIONS Dental, Provider, DDS Social History Tobacco Use Types Packs/Day Years [...] on filedocumented in this encounter Care Teams Sand Cutter Relationship Specialty Start Date End Date Danielle Grant MD [address] [place] [address] PCP - General Internal Medicine 12/27/17 documented as of this encounter
--- OUTSIDE RECORDS SUMMARY | 2024-09-02 12:26 | XMS_ITS | Encounter Summary ---
Author Organization [employer] Address [address] [facility] 7t [place] [address] Care Team Providers Care Brake Rider Name Role Phone Danielle Grant MD Primary Care Provider +1- [phone] Reason for Visit * Reason Onset Date Comments Nurse Triage 09/01/2024 Encounter Details Date Type Department Care Team (Late st Contact Info) Description 09/01/2024 Telephone [facility] [address] [place] [address] Danielle Grant MD [address] [place] [address] [phone] Nurse Triage Social History Tobacco Use Types Packs/Day Years [...] encounter Miscellaneous Notes * Telephone Encounter - Caroline Young RN - 09/01/2024 11:44 AM EDT Called pt. Via [employer] act tutor [id number] Fe. Pt. States that she has been having pain with urinationx 1 week. No foul smell. Burning sensation when pt. Stops urinating and frequency. Pt. Did take left over AZO pills that she had left over x 1 week with no change. Advised pt. That there are no openings in [facility] today but, she can go to [facility] walk in from 130pm-730pm today. Pt. States understanding andwill go to [facility] walk in today. Protocol Used: Urination Pain - Female (Adult) Protocol-Based Disposition: See in Office or Video Visit Today- Pt. Will go to [facility] walk in today between 130pm-730pm. Video visit offer not recorded Positive Triage Question: * Painful urination AND EITHER frequency or urgency * All higher-acuity triage questions were negative Care Advice Discussed: * Reassurance and Education - Possible Urine Infection * Drink Extra Fluids * Cranberry Juice * Warm Saline Sitz Baths - Twice Daily for Urination Pain * Telephone Encounter - Trupti Willis - 09/01/2024 11:38 AM EDT Symptom: Urination Pain Outcome: Schedule an urgent appointment (within 1 hour) or talk to a nurse or provider soon Reason: Severe pain now The caller accepted this outcome. documented in this encounter Plan of Treatment Not on file documented as of this encounter Visit Diagnoses Not on filedocumented in this encounter Care Teams Brake Rider Relationship Specialty Start Date End Date Danielle Grant MD [address] [place] [phone] PCP - General Internal Medicine 12/27/17 documented as of this encounter
== END 2024-09-02 11:02 | disposition home or self-care (01) ==
LOC: HO.HHCLNP 11:01
PROVIDERS: Visit Provider Family Medicine
DX: R30.0 Dysuria (principal)
CPT/HCPCS: 81001; 87086; 87088; 87186